=== PATIENT | male | born 1945 | race Caucasian/White ===

== ENCOUNTER 2020-08-18 11:00 | Day surgery (SDC) | payer OTHER ==
[2020-08-18] VITALS (9 sets, daily range): BP systolic 107–155; BP diastolic 61–80
[~2020-08-18] VITALS: Ht 193 cm; Wt 119.3 kg
[2020-08-18] MEDS ORDERED: normal saline 1,000 ML IV SCH (11:25)
[2020-08-18] MEDS ORDERED: LORazepam 0.5 MG tablet PO PRN (11:25)
[2020-08-18] MEDS ORDERED: diphenhydrAMINE 25mg capsule PO PRN (11:25)
[2020-08-18] MEDS ORDERED: ATOR10TA70 PO (12:40)
[2020-08-18] MEDS ORDERED: LOSA50TA64 PO (12:40)
[2020-08-18] MEDS ORDERED: COLC0.6T72 PO (12:40)
[2020-08-18] MEDS ORDERED: HYDR500C18 PO (12:40)
[2020-08-18] MEDS ORDERED: FURO-149 PO (12:40)
[2020-08-18] MEDS ORDERED: ALLO300T2 PO (12:40)
[2020-08-18] MEDS ORDERED: AMLO5TAB PO (12:40)
[2020-08-18] MEDS ORDERED: ASPI-1265 PO (12:40)
[2020-08-18] MEDS ORDERED: METO-539 PO (12:40)
[2020-08-18] MEDS ORDERED: LIDOcaine 1% (10mg/ml)w/preservative injection 20ml MDV ONE (13:12)
[2020-08-18] MEDS ORDERED: nitroGLYCERIN-Tridil 50MG/D5W 250 ML IV ONE (13:12)
[2020-08-18] MEDS ORDERED: heparin 1,000unit/ml 10ml vial 10 ML ONE (13:12)
[2020-08-18] MEDS ORDERED: iohexol 350MG/ML 100ml bottle IV ONE (13:12)
[2020-08-18] MEDS ORDERED: midazolam 2 mg/2 ml injection ONE (13:13)
[2020-08-18] MEDS ORDERED: verapamil 2.5 mg/ml inj IV ONE (13:13)
[2020-08-18] MEDS ORDERED: fentaNYL/PF 50MCG/1 ML 2ML syringe ONE (13:13)
[2020-08-18] MEDS ORDERED: proCHLORperazine 10 MG/2 ml inj IV PRN (14:35)
[2020-08-18] MEDS ORDERED: nitroGLYCERIN 0.4mg SUBLingual tab SL PRN (14:35)
[2020-08-18] MEDS ORDERED: OXAZEpam 15mg capsule PO PRN (14:35)
[2020-08-18] MEDS ORDERED: ondansetron/PF 4mg/2ml inj IV PRN (14:35)
== END 2020-08-18 16:30 | disposition home or self-care (01) ==
LOC: SSTAY O 11:00
PROVIDERS: ATTEND Internal Medicine Interventional Cardiology
DX: R94.39 Abnormal result of other cardiovascular function study (principal); R07.89 Other chest pain; I25.10 Atherosclerotic heart disease of native coronary artery without angina pectoris; I45.10 Unspecified right bundle-branch block; I10 Essential (primary) hypertension; E78.5 Hyperlipidemia, unspecified; Z79.899 Other long term (current) drug therapy; Z79.82 Long term (current) use of aspirin
CPT/HCPCS: 93005; 93458; 99152; C1769; C1894; J1644; J2001; J2250; J3010; Q9967; A4620; A5120; J3490